=== PATIENT | male | born 1960 | race Caucasian/White ===

== ENCOUNTER 2024-01-05 11:34 | Emergency (ER) | payer OTHER ==
[~2024-01-05] VITALS: Ht 177.8 cm; Wt 80.0 kg
[~2024-01-05 11:34] MED LIST: LOT105 PO; VALS40TA4 PO
[2024-01-05 11:40] VITALS: O2SAT 98
[2024-01-05] MEDS ORDERED: ADENOSINE 3 MG/ML 2ML VIAL IV ONE (11:40)
[2024-01-05] MEDS: ADENOSINE 3 MG/ML 2ML VIAL IV ONE ×2 (11:57)
[2024-01-05 12:19] LABS: BASOPHILS % 0.7 % (0.0-2.0); EOSINOPHILS % 1.6 % (0.0-5.0); HEMATOCRIT. 46.9 % (42.0-52.0); HEMOGLOBIN. 15.9 g/dL (14.0-18.0); LYMPHOCYTES % 36.8 % (20.0-50.0); MEAN CORPUSCULAR HEMOGLOBIN 30.5 pg (28.0-32.0); MEAN CORPUSCULAR VOLUME 89.7 fL (80.0-94.0); MEAN PLATELET VOLUME 8.8 fl (7.4-10.4); MONOCYTES % 9.2 % (2.0-8.0); NEUTROPHILS % 51.7 % (40.0-76.0); PLATELET 261 x1000/uL (130-400); RED BLOOD CELL COUNT 5.23 mill/uL (4.7-6.1); RED CELL DISTRIBUTION WIDTH 14.8 % (11.6-14.6); WHITE BLOOD COUNT 7.2 x1000/uL (4.5-11.0)
[2024-01-05 12:21] LABS: CHLORIDE 104 mEq/L (98-107); POTASSIUM 3.7 mEq/L (3.5-5.1); SODIUM 136 mEq/L (136-145)
[2024-01-05 12:22] LABS: CALCIUM 9.3 mg/dL (8.7-10.4); CARBON DIOXIDE 24 mEq/L (21-32)
[2024-01-05 12:27] LABS: CREATININE 1.2 mg/dL (0.6-1.3); GLUCOSE 209 mg/dL (70-105); TROPONIN I HIGH SENSITIVITY 16 ng/L (3.0-53); UREA NITROGEN BLOOD 16 mg/dL (9-23)
[2024-01-05 14:55] VITALS: BP 173/76; PULSE 78; RESP 16; TEMP 98.7
== END 2024-01-05 14:57 | disposition home or self-care (01) ==
LOC: ER 11:34 → CANBEDREQ 14:44 → ER 14:57
DX: I47.19 Other supraventricular tachycardia (principal); E11.9 Type 2 diabetes mellitus without complications; I10 Essential (primary) hypertension
CPT/HCPCS: 80048; 83880; 85025; 84484; 36415; 71045; 93005; 96374; 99285; J0153; Z7610